=== PATIENT | female | born 1935 | race Asian ===

== ENCOUNTER 2017-06-05 13:22 | Inpatient (IN) | payer MEDICARE, OTHER ==
[~2017-06-05] VITALS: Ht 152.4 cm; Wt 49.9 kg
[~2017-06-05 13:22] MED LIST: AMLODIPINE BESY10 MG ORAL; ATORVASTATIN CA10 MG ORAL; DIOVAN160 MG ORAL; DONEPEZIL HCL10 M2 ORAL; LANTUS SOL100 UNIT/1 SUBQ; METFORMIN HCL500 M1 ORAL
[2017-06-05] MEDS ORDERED: CREON DR 24,001 EACH PO (13:28)
[2017-06-05] MEDS ORDERED: CARAFATE1 G1 ORAL ×2 (13:28→23:13)
[2017-06-05] MEDS ORDERED: GABAPENTIN100 MG ORAL ×2 (13:28→23:13)
[2017-06-05] MEDS ORDERED: MYRBETRIQ25 MG PO ×2 (13:28→23:13)
[2017-06-05] MEDS ORDERED: JENTADUETO 2.51 EAC1 PO ×2 (13:28→23:13)
[2017-06-05] MEDS ORDERED: OMEPRAZOLE40 M1 ORAL (13:28)
[2017-06-05] MEDS ORDERED: LOSARTAN POTASS50 MG ORAL (13:28)
[2017-06-05 13:50] LABS: BASOPHILS % (AUTO) 0.9 % (0.0-2.0); EOSINOPHILS % (AUTO) 0.6 % (0.0-3.0); HEMATOCRIT 43.3 % (37.0-47.0); HEMOGLOBIN 13.5 G/DL (12.0-16.0); LYMPHOCYTES % (AUTO) 22.6 % (20.0-45.0); MEAN CORPUSCULAR VOLUME 90 FL (80-99); MONOCYTES % (AUTO) 12.6 % (1.0-10.0); NEUTROPHILS % (AUTO) 63.3 % (45.0-75.0); PLATELET COUNT 159 K/UL (150-450); RED CELL DISTRIBUTION WIDTH 12.2 % (11.6-14.8); WHITE BLOOD COUNT 7.7 K/UL (4.8-10.8)
[2017-06-05 14:07] LABS: ALANINE AMINOTRANSFERASE 13 U/L (12-78); ALBUMIN 3.6 G/DL (3.4-5.0); ALKALINE PHOSPHATASE 54 U/L (46-116); ANION GAP 7 mmol/L (5-15); ASPARTATE AMINO TRANSFERASE 16 U/L (15-37); BILIRUBIN,TOTAL 0.6 MG/DL (0.2-1.0); BLOOD UREA NITROGEN 13 mg/dL (7-18); CALCIUM 9.3 MG/DL (8.5-10.1); CARBON DIOXIDE 30 MMOL/L (21-32); CHLORIDE 100 MMOL/L (98-107); POTASSIUM 3.6 MMOL/L (3.5-5.1); SODIUM 137 MMOL/L (136-145)
[2017-06-05 14:16] LABS: CKMB 1.2 NG/ML (0.0-3.6); CREATINE KINASE 44 U/L (26-308)
[2017-06-05 14:26] LABS: APPEARANCE,URINE TURBID; BILIRUBIN, URINE NEGATIVE (NEGATIVE); COLOR,URINE PALE YELLOW; GLUCOSE, URINE (UA) 1+ (NEGATIVE); KETONES,URINE NEGATIVE (NEGATIVE); LEUKOCYTE ESTERASE ,URINE 3+ (NEGATIVE); NITRITE,URINE POSITIVE (NEGATIVE); PH,URINE 7 (4.5-8.0); PROTEIN,URINE 3+ (NEGATIVE); UROBILINOGEN,URINE NORMAL MG/DL (0.0-1.0)
[2017-06-05 14:35] VITALS: BP 188/99
--- NOTE | 2017-06-05 14:52 | Emergency Room Report ---
History of Present Illness General Chief Complaint: Multiple Trauma/Fall Source: Patient, EMS (Sushma Matta) Present Illness HPI 81 YO Female Presents to the emergency department status post fall, reports feeling dizzy and her heart beating fast prior to falling. rates pain as 3/10 in severity to the right side of her face. Pt. denies taking blood thinning medications. pt. reports tenderness to the right cheekbone and right side of forehead with bleeding and swelling. pt. reports mild URI symptoms several days ago which for the most part have resolved, denies abdominal pain, N/V/D or constipation. denies fevers or chills. hx of DM, Hyperlipidemia, HTN. denies neck or back pain. denies pain elsewhere on the body. Denies CP, Changes in Vision, Sensation, paresthesias, or a sudden severe headache. (Sushma Matta) Allergies: Coded Allergies: No Known Allergies (Unverified , 07/19/13) Patient History Past Medical History: see triage record, DM, HTN Past Surgical History: none Pertinent Family History: none Now: No Reviewed Nursing Documentation: PMH: Agreed, PSxH: Agreed (Susmha Matta) Nursing Documentation-PMH Past Medical History: No History, Except For Hx Hypertension: Yes Hx Diabetes: Yes Hx Cancer: No Hx Gastrointestinal Problems: No Hx Neurological Problems: No (Sushma Matta) Review of Systems All Other Systems: negative except mentioned in HPI (Sushma Matta) Physical Exam Vital Signs Date Time Temp Pulse Resp B/P (MAP) Pulse Ox O2 Delivery O2 Flow Rate FiO2 06/05/17 13:20 99.3 99 16 180/85 96 Room Air 06/05/17 13:40 97 Sp02 EP Interpretation: reviewed, normal General Appearance: no apparent distress, alert, GCS 15, non-toxic, thin Head: normocephalic, other - facial abrasions to the right side of the forhead and the right cheek bone, there is contusion/echymosis noted as well in both areas. Eyes: bilateral eye normal inspection, bilateral eye PERRL ENT: hearing grossly normal, normal voice, TMs + canals normal, other - no oral lesions, bleeding, dentition intact Neck: full range of motion, no bony tend Respiratory: chest non-tender, lungs clear, normal breath sounds, no respiratory distress, no wheezing, speaking full sentences Cardiovascular #1: regular rate, rhythm, no edema, normal capillary refill Cardiovascular #2: 2+ radial (R), 2+ radial (L) Gastrointestinal: normal bowel sounds, non tender, soft Rectal: deferred Musculoskeletal: back normal, gait/station normal, normal range of motion, tender - TTP to the right cheekbone, and right side of the forehead. no TTP to neck, spine, or extremities. Neurologic: alert, oriented x3, responsive, motor strength/tone normal, sensory intact, speech normal, no pronator Skin: normal color, no rash, warm/dry, well hydrated, abrasions - facial abrasions to the right side of the forhead and the right cheek bone, there is contusion/echymosis noted as well in both areas. (Sushma Matta P.A.) Medical Decision Making PA Attestation Dr. Tang is my supervising Physician whom patient management has been discussed with. (Sushma Matta P.A.) Diagnostic Impression: Primary Impression: UTI (urinary tract infection) Qualified Codes: N30.01 - Acute cystitis with hematuria Additional Impressions: Fall Qualified Codes: W19.XXXA - Unspecified fall, initial encounter Multiple injuries due to trauma Syncope Qualified Codes: R55 - Syncope and collapse ER Course 81 YO Female Presents to the emergency department status post fall, reports feeling dizzy and her heart beating fast prior to falling. rates pain as 3/10 in severity to the right side of her face. Pt. denies taking blood thinning medications. pt. reports tenderness to the right cheekbone and right side of forehead with bleeding and swelling. pt. reports mild URI symptoms several days ago which for the most part have resolved, denies abdominal pain, N/V/D or constipation. denies fevers or chills. hx of DM, Hyperlipidemia, HTN. denies neck or back pain. denies pain elsewhere on the body. Denies CP, Changes in Vision, Sensation, paresthesias, or a sudden severe headache. Ddx considered but are not limited to dysrhythmia, hypoglycemia, hypovolemia, , intracranial process, vasovagal, subdural hematoma or ICH. Vital signs: are WNL, pt. is afebrile H&PE are most consistent with Fall with preceding dizziness. ORDERS: - EK BPM NSR - no acute ST changes reviewed by Dr. Tnag, his interpretation was scribed by EZEKIEL Matta -CBC, CMP: unremarkable -Troponin (0.00) , CK, CK-MB: --WNL -UA : positive for UTI, nitrite positive, many bacteria, and TNTC WBC's Ct Head No Contrast: No evidence of acute fracture, hemorrhage, or intracranial process Per official radiology report- Please see report for specific details. -CT Facial Bones No Contrast: Negative for acute fractures -CT C-Spine No Contrast: Negative for acute fractures, degenerative changes noted - Per official radiology report- Please see report for specific details. -CXR ED INTERVENTIONS: -IV access is established - Pt. declines pain medication at this time. -wound cleaning and bacitracin is applied by RN -Cefepime IV DISPOSITION: at this time pt. will be admitted to Dr. Strong for UTI, Syncopal episode. Dr. Strong agreed to admit the pt. and to continue pt. care management. Labs Test 06/05/17 13:30 White Blood Count 7.7 K/UL (4.8-10.8) Red Blood Count 4.80 M/UL (4.20-5.40) Hemoglobin 13.5 G/DL (12.0-16.0) Hematocrit 43.3 % (37.0-47.0) Mean Corpuscular Volume 90 FL (80-99) Mean Corpuscular Hemoglobin 28.1 PG (27.0-31.0) Mean Corpuscular Hemoglobin Concent 31.2 G/DL (32.0-36.0) Red Cell Distribution Width 12.2 % (11.6-14.8) Platelet Count 159 K/UL (150-450) Mean Platelet Volume 7.6 FL (6.5-10.1) Neutrophils (%) (Auto) 63.3 % (45.0-75.0) Lymphocytes (%) (Auto) 22.6 % (20.0-45.0) Monocytes (%) (Auto) 12.6 % (1.0-10.0) Eosinophils (%) (Auto) 0.6 % (0.0-3.0) Basophils (%) (Auto) 0.9 % (0.0-2.0) Urine Color Pale yellow Urine Appearance Turbid Urine pH 7 (4.5-8.0) Urine Specific [place] 1.010 (1.005-1.035) Urine Protein 3+ (NEGATIVE) Urine Glucose (UA) 1+ (NEGATIVE) Urine Ketones Negative (NEGATIVE) Urine Occult Blood 2+ (NEGATIVE) Urine Nitrite Positive (NEGATIVE) Urine Bilirubin Negative (NEGATIVE) Urine Urobilinogen Normal MG/DL (0.0-1.0) Urine Leukocyte Esterase 3+ (NEGATIVE) Urine RBC 2-4 /HPF (0 - 2) Urine WBC Tntc /HPF (0 - 2) Urine Squamous Epithelial Cells Moderate /LPF (NONE/OCC) Urine Bacteria Many /HPF (NONE) Sodium Level 137 MMOL/L (136-145) Potassium Level 3.6 MMOL/L (3.5-5.1) Chloride Level 100 MMOL/L (98-107) Carbon Dioxide Level 30 MMOL/L (21-32) Anion Gap 7 mmol/L (5-15) Blood Urea Nitrogen 13 mg/dL (7-18) Creatinine 1.0 MG/DL (0.55-1.30) Estimat Glomerular Filtration Rate mL/min (>60) Glucose Level 153 MG/DL (74-106) Calcium Level 9.3 MG/DL (8.5-10.1) Total Bilirubin 0.6 MG/DL (0.2-1.0) Aspartate Amino Transf (AST/SGOT) 16 U/L (15-37) Alanine Aminotransferase (ALT/SGPT) 13 U/L (12-78) Alkaline Phosphatase 54 U/L (46-116) Total Creatine Kinase 44 U/L (26-308) Creatine Kinase MB 1.2 NG/ML (0.0-3.6) Creatine Kinase MB Relative Index 2.7 Troponin I 0.000 ng/mL (0.000-0.056) Total Protein 7.2 G/DL (6.4-8.2) Albumin 3.6 G/DL (3.4-5.0) Globulin 3.6 g/dL Albumin/Globulin Ratio 1.0 (1.0-2.7) (Sushma Matta.Rah.) ER Course I agree with the above assessment. Patient examined by me and needs admission. (Ben Massey M.D.) EKG Diagnostic Results EP Interpretation: [place] Rate: normal - 90 Rhythm: NSR ST Segments: no acute changes ASA given to the pt in ED: No PA Scribe Text - EK BPM NSR - no acute ST changes reviewed by Dr. Tang, his interpretation was scribed by EZEKIEL Matta (Sushma Matta P.ABela) Chest X-Ray Diagnostic Results Chest X-Ray Diagnostic Results : Chest X-Ray Ordered: Yes # of Views/Limited/Complete: 1 View Indication: Other - Syncope EP Interpretation: Yes PA Xray: Interpretation reviewed, by supervising MD, and agrees with findings. Interpretation: no consolidation, no effusion, no pneumothorax, no acute cardiopulmonary disease Impression: No acute disease Electronically Signed by: Sushma Matta PA-C (Sushma Matta P.Cecil) Chest X-Ray Diagnostic Results : Electronically Signed by: Scribbuddy documentation reviewed by me and is accurate, Ben Massey MD. (Ben Massey M.D.) Last Vital Signs Date Time Temp Pulse Resp B/P (MAP) Pulse Ox O2 Delivery O2 Flow Rate FiO2 06/05/17 14:35 98.5 81 20 188/99 95 Room Air 06/05/17 13:40 97 (Sushma Matta P.Cecil) Disposition: ADMITTED INPATIENT Condition: Serious Referrals: NOT CHOSEN IPA/,REFERRING (PCP) Sushma Matta Jun 05, 2017 14:52 Ben Massey M.D. Jun 08, 2017 20:56
[2017-06-05] MEDS ORDERED: Cefepime HCl 2 GM in D5W 110 ML IVPB ONE (15:00)
--- NOTE | 2017-06-05 15:01 | Diagnostic Imaging Report ---
Indications: Right-sided facial trauma from fall on street, head pain Technique: Spiral acquisitions obtained through the brain. Angled axial and coronal 5 x 5 mm slices were reconstructed. Total dose length product 1357 mGycm. CTDI vol(s) 70 mGy. Dose reduction achieved using automated exposure control Comparison: None Findings: There is a right supraorbital scalp contusion. There is age-related enlargement of ventricles and extra-axial CSF spaces. There is considerable periventricular deep white matter chronic ischemic change. There is a parenchymal calcification in the right parasagittal parietal cortex. No acute intracranial hemorrhage or edema. No mass effect or midline shift. 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 This is best appreciated on the coronal images. Intact calvarium. 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
[2017-06-05] MEDS ORDERED: Cefepime 2gm ONE (15:05)
--- NOTE | 2017-06-05 15:24 | Diagnostic Imaging Report ---
Indication: PAIN, right-sided trauma from fall on street Technique: Spiral acquisitions obtained through the cervical spine. No IV contrast utilized. Multiplanar reconstructions were generated. Total dose length product 183 mGycm. CTDIvol(s) 10 mGy. Dose reduction achieved using automated exposure control Comparison: None Findings: There is minimal posterior displacement of C5 on C6 and C6 on C7. Otherwise normal bony alignment. No acute fractures. Vertebral body heights are preserved. There is degenerative disc narrowing at C5-6 and C6-7. The remainder of the disc spaces are preserved. At C3-4, there is mild central posterior disc protrusion which results in mild narrowing of the spinal canal. There is mild narrowing of the right neural foramen as well. At C4-5, there is posterior disc protrusion which results in mild to moderate narrowing of the spinal canal. At C5-6, broad-based central posterior disc protrusion results in moderate narrowing of the spinal canal, particularly to the right. There is moderate to severe right neural foraminal stenosis. At C6-7, posterior osteophytes and ligament of flavum hypertrophy results in mild narrowing of the spinal canal. There is mild right and moderate to severe left neural foraminal stenosis. The remaining disc levels, no significant disc bulge or protrusion, spinal stenosis or neural foraminal stenosis The included lung apices are clear. The included extraspinal soft tissues are unremarkable. Impression: Degenerative changes as detailed on a level by level basis above No acute bony trauma. The CT scanner at [facility] is accredited by the [employer] and the scans are performed using protocols designed to limit radiation exposure to as low as reasonably achievable to attain images of sufficient resolution adequate for diagnostic evaluation.
--- NOTE | 2017-06-05 15:27 | Diagnostic Imaging Report ---
Indications: Right-sided facial trauma from fall on streak Technique: Spiral images obtained through the facial bones. No IV contrast utilized. Multiplanar reconstructions were generated.Total dose length product 540 mGycm. CTDIvol(s) 28mGy. Dose reduction achieved using automated exposure control Comparison: None Findings: Is there is supraorbital scalp soft tissue swelling on the right. No evidence of acute fracture. There is minimal ethmoid sinus mucosal disease. No worrisome sinus air-fluid levels are demonstrated. There is evidence of considerable dental disease, with multiple dental caries and suggestion of multiple small apical root abscesses, particularly on the maxillary side. There is also evidence of multiple prior dental extractions. Is evidence of prior bilateral cataract surgery. The facial soft tissues are unremarkable. The submandibular glands are somewhat atrophic. Impression: No acute bony trauma Evidence of dental disease Other findings as noted The CT scanner at [facility] is accredited by the [employer] and the scans are performed using protocols designed to limit radiation exposure to as low as reasonably achievable to attain images of sufficient resolution adequate for diagnostic evaluation.
--- NOTE | 2017-06-05 15:45 | Diagnostic Imaging Report ---
Indication: Chest pain Technique: One view of the chest Comparison: 07/19/2013 Findings: Lungs and pleural spaces are clear. Heart size is upper limits of normal. Aorta is tortuous and calcified. Upper mediastinum is unremarkable. Impression: No acute process
[2017-06-05 15:55] VITALS: BP 156/86
[2017-06-05] MEDS ORDERED: Bacitracin Oint UD TOPIC ONE (16:15)
[2017-06-05 16:30] VITALS: BP 166/82
--- NOTE | 2017-06-05 17:18 | Infectious Diseases Prog Note ---
Assessment/Plan Problems: (1) UTI (urinary tract infection) Assessment & Plan: will start cefepime empirically pending urine culture results (2) Multiple injuries due to trauma Assessment & Plan: continue tele monitor, and neuro check (3) DM (diabetes mellitus) Assessment & Plan: recommend tight glycemic control to keep blood glucose between 80-120 (4) HTN (hypertension) Assessment & Plan: continue blood pressure meds to keep SBP<140 Subjective Allergies: Coded Allergies: No Known Allergies (Unverified , 07/19/13) Objective Vital Signs Last 24 Hour Vital Signs Date Time Temp Pulse Resp B/P (MAP) Pulse Ox O2 Delivery O2 Flow Rate FiO2 06/05/17 15:55 99.3 98 19 156/86 95 Room Air 97 06/05/17 14:35 98.5 81 20 188/99 95 Room Air 06/05/17 13:40 93 19 Room Air 97 06/05/17 13:20 99.3 99 16 180/85 96 Room Air Height (Feet): 5 Weight (Pounds): 110 Laboratory Tests Test 06/05/17 13:30 White Blood Count 7.7 K/UL (4.8-10.8) Red Blood Count 4.80 M/UL (4.20-5.40) Hemoglobin 13.5 G/DL (12.0-16.0) Hematocrit 43.3 % (37.0-47.0) Mean Corpuscular Volume 90 FL (80-99) Mean Corpuscular Hemoglobin 28.1 PG (27.0-31.0) Mean Corpuscular Hemoglobin Concent 31.2 G/DL (32.0-36.0) L Red Cell Distribution Width 12.2 % (11.6-14.8) Platelet Count 159 K/UL (150-450) Mean Platelet Volume 7.6 FL (6.5-10.1) Neutrophils (%) (Auto) 63.3 % (45.0-75.0) Lymphocytes (%) (Auto) 22.6 % (20.0-45.0) Monocytes (%) (Auto) 12.6 % (1.0-10.0) H Eosinophils (%) (Auto) 0.6 % (0.0-3.0) Basophils (%) (Auto) 0.9 % (0.0-2.0) Urine Color Pale yellow Urine Appearance Turbid Urine pH 7 (4.5-8.0) Urine Specific [place] 1.010 (1.005-1.035) Urine Protein 3+ (NEGATIVE) H Urine Glucose (UA) 1+ (NEGATIVE) H Urine Ketones Negative (NEGATIVE) Urine Occult Blood 2+ (NEGATIVE) H Urine Nitrite Positive (NEGATIVE) H Urine Bilirubin Negative (NEGATIVE) Urine Urobilinogen Normal MG/DL (0.0-1.0) Urine Leukocyte Esterase 3+ (NEGATIVE) H Urine RBC 2-4 /HPF (0 - 2) H Urine WBC Tntc /HPF (0 - 2) H Urine Squamous Epithelial Cells Moderate /LPF (NONE/OCC) H Urine Bacteria Many /HPF (NONE) H Sodium Level 137 MMOL/L (136-145) Potassium Level 3.6 MMOL/L (3.5-5.1) Chloride Level 100 MMOL/L (98-107) Carbon Dioxide Level 30 MMOL/L (21-32) Anion Gap 7 mmol/L (5-15) Blood Urea Nitrogen 13 mg/dL (7-18) Creatinine 1.0 MG/DL (0.55-1.30) Estimat Glomerular Filtration Rate mL/min (>60) Glucose Level 153 MG/DL (74-106) H Calcium Level 9.3 MG/DL (8.5-10.1) Total Bilirubin 0.6 MG/DL (0.2-1.0) Aspartate Amino Transf (AST/SGOT) 16 U/L (15-37) Alanine Aminotransferase (ALT/SGPT) 13 U/L (12-78) Alkaline Phosphatase 54 U/L (46-116) Total Creatine Kinase 44 U/L (26-308) Creatine Kinase MB 1.2 NG/ML (0.0-3.6) Creatine Kinase MB Relative Index 2.7 Troponin I 0.000 ng/mL (0.000-0.056) Total Protein 7.2 G/DL (6.4-8.2) Albumin 3.6 G/DL (3.4-5.0) Globulin 3.6 g/dL Albumin/Globulin Ratio 1.0 (1.0-2.7) Sherlyn Douglas M.D. Jun 05, 2017 17:18
[2017-06-05 17:30] VITALS: BP 174/98
[2017-06-05 18:05] VITALS: BP 143/82
[2017-06-05] MEDS: Cefepime HCl 1 GM in D5W 55 ML IVPB SCH (19:08)
[2017-06-05 20:00] VITALS: BP 150/89
[2017-06-05] MEDS: NovoLOG Insulin Flexpen SUBQ SCH (21:00)
--- NOTE | 2017-06-05 21:45 | Consultation ---
DATE OF CONSULTATION: INFECTIOUS DISEASE CONSULTATION REQUESTING PHYSICIAN: Juan R Ellison M.D. REASON FOR CONSULTATION: Urinary tract infection. Recommendation for antibiotics treatment. HISTORY OF PRESENT ILLNESS: The patient is an 81-year-old female with past medical history of diabetes and hypertension, was brought in to [facility] emergency room after she had a fall. The patient felt dizzy and her heart was beating fast before she fell. So she landed on the right cheekbone on the right side of her forehead with skull bruises and bleeding sustained after the fall. She had mild upper respiratory infection symptoms couple of days prior to her fall, but most of it have resolved completely. The patient denied any an abdominal pain, nausea, vomiting, or diarrhea. Denied any fever or chills. No cough or shortness of breath. No chest pain. No blurry vision. No other symptoms. In the emergency room, the patient was found to have fever with temperature of 99.3 degrees and elevated blood pressure of 180/85. Urinalysis showed evidence of infection. So, I was consulted by the primary provider for antibiotic choice and further management of her urine tract infection and fever. As of note, the patient is poor historian. Most of the history was obtained from the emergency room medical staff and the medical record. PAST MEDICAL HISTORY: Significant for diabetes and hypertension. PAST SURGICAL HISTORY: Negative. MEDICATIONS: She received cefepime and bacitracin in the emergency room. ALLERGIES: No known drug allergy. SOCIAL HISTORY: The patient denied using any drugs, tobacco, or alcohol. FAMILY HISTORY: Not contributory. REVIEW OF SYSTEMS: Unable to obtain. The patient cannot provide good history at this point. PHYSICAL EXAMINATION: GENERAL: An elderly female, lying in bed, awake, alert, not in acute distress. VITAL SIGNS: Temperature 99.3 degrees, pulse 90, respirations 19, blood pressure 156/86, and saturation 95% on room air. HEENT: Normocephalic with trauma and bruises above the right orbital area with ecchymosis. Moist oral mucosa. No exudate or thrush. NECK: Supple. No lymphadenopathy. CARDIOVASCULAR: Regular rate and rhythm. No murmur. LUNGS: Clear bilaterally. No wheezing or rhonchi. ABDOMEN: Soft, nontender, and nondistended. Positive bowel sounds. No hepatosplenomegaly or ascites. EXTREMITIES: No edema or cyanosis, but bruises. SKIN: No rash. No hives, but bruises and ecchymosis. LABORATORY AND DIAGNOSTIC DATA: Imaging, 1. Head CT scan showed chronic and age-related changes. Negative for acute intracranial bleed or mass effect. 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 Right supra orbital scalp soft tissue contusion. 2. CT scan facial bones showed no acute bony trauma with evidence of dental disease. 3. Chest x-ray showed no acute process. 4. Cervical spine CT scan showed degenerative changes. ASSESSMENT AND RECOMMENDATION: 1. Urinary tract infection. We will start the patient on cefepime empiric treatment. Pending urine culture results. Monitor vitals. 2. Multiple injury due to trauma. Continue telemonitor and neuro check. Recommend Neurology consultation to rule out brain contusion. 3. Diabetes. Recommend tight glycemic control to keep blood glucose between 80 to 120. 4. Hypertension. Continue blood pressure medicine to keep systolic blood pressure less than 140. Avoid orthostatic hypotension. Thank you for the consult. ID will continue to follow. Sherlyn Douglas M.D. DR: REMY JOB#: [id number] CC:
[2017-06-05] MEDS ORDERED: PLAVIX75 MG ORAL (23:13)
[2017-06-05] MEDS ORDERED: LEVEMIR100 UNIT/1 SUBQ (23:13)
[2017-06-06] VITALS (7 sets, daily range): BP systolic 132–155; BP diastolic 68–109
[2017-06-06] MEDS ORDERED: Bacitracin Oint UD TOPIC ONE (04:00)
[2017-06-06] MEDS: NovoLOG Insulin Flexpen SUBQ SCH ×4 (06:30→21:01)
[2017-06-06 07:56] LABS: BASOPHILS % (AUTO) 0.8 % (0.0-2.0); EOSINOPHILS % (AUTO) 0.6 % (0.0-3.0); HEMATOCRIT 40.1 % (37.0-47.0); HEMOGLOBIN 13.3 G/DL (12.0-16.0); LYMPHOCYTES % (AUTO) 19.1 % (20.0-45.0); MEAN CORPUSCULAR VOLUME 90 FL (80-99); MONOCYTES % (AUTO) 12.4 % (1.0-10.0); NEUTROPHILS % (AUTO) 67.1 % (45.0-75.0); PLATELET COUNT 152 K/UL (150-450); RED BLOOD COUNT 4.47 M/UL (4.20-5.40); RED CELL DISTRIBUTION WIDTH 11.8 % (11.6-14.8); WHITE BLOOD COUNT 5.7 K/UL (4.8-10.8)
[2017-06-06 08:13] LABS: ALANINE AMINOTRANSFERASE 15 U/L (12-78); ALBUMIN 3.2 G/DL (3.4-5.0); ALBUMIN/GLOBULIN RATIO 0.8 (1.0-2.7); ALKALINE PHOSPHATASE 43 U/L (46-116); ANION GAP 12 mmol/L (5-15); ASPARTATE AMINO TRANSFERASE 16 U/L (15-37); BILIRUBIN,TOTAL 0.7 MG/DL (0.2-1.0); BLOOD UREA NITROGEN 13 mg/dL (7-18); CALCIUM 9.2 MG/DL (8.5-10.1); CARBON DIOXIDE 24 MMOL/L (21-32); CHLORIDE 102 MMOL/L (98-107); CREATININE 0.8 MG/DL (0.55-1.30); POTASSIUM 3.3 MMOL/L (3.5-5.1); SODIUM 138 MMOL/L (136-145)
[2017-06-06] MEDS: Cefepime HCl 1 GM in D5W 55 ML IVPB SCH (09:45)
[2017-06-06] MEDS: Bacitracin Oint UD TOPIC SCH (10:23)
--- NOTE | 2017-06-06 14:41 | Cardiology Report ---
APPROVED REPORT EKG Measurement Heart [id number] ID [id number] Normal sinus rhythm Normal ECG
--- NOTE | 2017-06-06 14:41 | Cardiology Report ---
APPROVED REPORT EKG Measurement Heart [id number] [place] [id number] Normal sinus rhythm Normal ECG
--- NOTE | 2017-06-06 14:41 | Cardiology Report ---
APPROVED REPORT EKG Measurement Heart [id number] [place] [id number] Normal sinus rhythm Normal ECG
--- NOTE | 2017-06-06 16:06 | Infectious Diseases Prog Note ---
Assessment/Plan Problems: (1) UTI (urinary tract infection) Assessment & Plan: continue cefepime empirically pending urine culture results (2) Multiple injuries due to trauma Assessment & Plan: continue tele monitor, and neuro check (3) DM (diabetes mellitus) Assessment & Plan: recommend tight glycemic control to keep blood glucose between 80-120 (4) HTN (hypertension) Assessment & Plan: continue blood pressure meds to keep SBP<140 (5) Fever Assessment & Plan: suspect facial cellulitis will add vancomycin and continue cefepime empirically Subjective ROS Limited/Unobtainable: Yes Allergies: Coded Allergies: No Known Allergies (Unverified , 07/19/13) Subjective she has right facial swelling , with bruises, can't open her right eye, NAD Objective Vital Signs Last 24 Hour Vital Signs Date Time Temp Pulse Resp B/P (MAP) Pulse Ox O2 Delivery O2 Flow Rate FiO2 06/06/17 15:37 98.1 89 18 132/68 94 Room Air 06/06/17 12:00 98 06/06/17 11:43 100.0 92 20 140/78 93 Room Air 06/06/17 09:51 95 144/91 06/06/17 08:32 97.0 95 18 144/91 94 Room Air 06/06/17 08:00 96 06/06/17 04:00 82 06/06/17 04:00 98.0 100 21 144/91 93 Room Air 06/06/17 00:00 97.9 93 20 155/83 92 Room Air 06/06/17 00:00 82 06/05/17 20:00 98.1 94 21 150/89 93 Room Air 06/05/17 20:00 89 06/05/17 18:05 97.2 83 19 143/82 95 Room Air 06/05/17 17:30 99.5 97 20 174/98 99 Room Air 06/05/17 17:30 99.3 97 20 174/98 99 Room Air 97 06/05/17 16:30 87 22 166/82 95 Room Air 97 Height (Feet): 5 Height (Inches): 0.00 Weight (Pounds): 110 General Appearance: no acute distress, cachetic, other - right facial swelling with bruises, and periorbital edema HEENT: anicteric, mucous membranes moist, other - right facial swelling, with periorbital edema and blue discoloration Respiratory/Chest: chest wall non-tender, lungs clear, normal breath sounds, no respiratory distress, no accessory muscle use Cardiovascular: normal peripheral pulses, normal rate, regular rhythm, no gallop/murmur, no JVD Abdomen: normal bowel sounds, soft, non tender, no organomegaly, non distended , no mass, no scars Extremities: no cyanosis, no clubbing Skin: no rash, no lesions, no ulcers Neurologic/Psychiatric: alert Lymphatic: no neck adenopathy, no groin adenopathy Microbiology Date/Time Source Procedure Growth Status 06/05/17 13:30 Urine,Clean Catch Urine Culture - Preliminary Resulted Laboratory Tests Test 06/06/17 05:55 White Blood Count 5.7 K/UL (4.8-10.8) Red Blood Count 4.47 M/UL (4.20-5.40) Hemoglobin 13.3 G/DL (12.0-16.0) Hematocrit 40.1 % (37.0-47.0) Mean Corpuscular Volume 90 FL (80-99) Mean Corpuscular Hemoglobin 29.6 PG (27.0-31.0) Mean Corpuscular Hemoglobin Concent 33.0 G/DL (32.0-36.0) Red Cell Distribution Width 11.8 % (11.6-14.8) Platelet Count 152 K/UL (150-450) Mean Platelet Volume 8.7 FL (6.5-10.1) Neutrophils (%) (Auto) 67.1 % (45.0-75.0) Lymphocytes (%) (Auto) 19.1 % (20.0-45.0) L Monocytes (%) (Auto) 12.4 % (1.0-10.0) H Eosinophils (%) (Auto) 0.6 % (0.0-3.0) Basophils (%) (Auto) 0.8 % (0.0-2.0) Sodium Level 138 MMOL/L (136-145) Potassium Level 3.3 MMOL/L (3.5-5.1) L Chloride Level 102 MMOL/L (98-107) Carbon Dioxide Level 24 MMOL/L (21-32) Anion Gap 12 mmol/L (5-15) Blood Urea Nitrogen 13 mg/dL (7-18) Creatinine 0.8 MG/DL (0.55-1.30) Estimat Glomerular Filtration Rate mL/min (>60) Glucose Level 110 MG/DL (74-106) H Calcium Level 9.2 MG/DL (8.5-10.1) Total Bilirubin 0.7 MG/DL (0.2-1.0) Aspartate Amino Transf (AST/SGOT) 16 U/L (15-37) Alanine Aminotransferase (ALT/SGPT) 15 U/L (12-78) Alkaline Phosphatase 43 U/L (46-116) L Total Protein 7.3 G/DL (6.4-8.2) Albumin 3.2 G/DL (3.4-5.0) L Globulin 4.1 g/dL Albumin/Globulin Ratio 0.8 (1.0-2.7) L Current Medications Medications (Trade) Dose Ordered Sig/Fercho Route PRN Reason Start Time Stop Time Status Last Admin Dose Admin Acetaminophen (Tylenol) 650 mg Q4H PRN ORAL fever (temp > 100.5 F) 06/05/17 18:00 07/05/17 17:59 Amlodipine Besylate (Norvasc) 5 mg DAILY ORAL 06/06/17 09:00 07/06/17 08:59 06/06/17 09:51 Bacitracin (Bacitracin) 1 applic DAILY TOPIC 06/06/17 09:00 07/06/17 08:59 06/06/17 10:23 Cefepime HCl 1 gm/ Dextrose 55 ml @ 110 mls/hr DAILY IVPB 06/05/17 18:30 06/12/17 18:29 06/06/17 09:45 Clonidine HCl (Catapres) 0.1 mg Q6H PRN ORAL For High Blood Pressure 06/05/17 18:00 07/05/17 17:59 Dextrose (Dextrose 50%) STAT PRN IV Hypoglycemia 06/05/17 18:00 07/05/17 17:59 Insulin Aspart (NovoLOG) BEFORE MEALS AND HS SUBQ 06/05/17 21:00 07/05/17 20:59 06/06/17 13:00 Sherlyn Douglas M.D. Jun 06, 2017 16:06
[2017-06-06] MEDS: Vancomycin 500 MG in NS 110 ML IVPB SCH (17:37)
[2017-06-06] MEDS ORDERED: NS 275ml ONE (18:00)
[2017-06-06] MEDS ORDERED: Tubing IV Secondary IV ONE (18:00)
[2017-06-07 03:58] VITALS: BP 155/81
[2017-06-07] MEDS: NovoLOG Insulin Flexpen SUBQ SCH ×4 (06:18→21:26)
[2017-06-07 08:00] VITALS: BP 161/82
[2017-06-07] MEDS: Cefepime HCl 1 GM in D5W 55 ML IVPB SCH (09:09)
[2017-06-07] MEDS: Bacitracin Oint UD TOPIC SCH (09:10)
[2017-06-07] MEDS ORDERED: Tubing IV Secondary IV ONE (09:19)
[2017-06-07] MEDS ORDERED: NS 275ml ONE (09:19)
[2017-06-07 12:00] VITALS: BP 128/80
--- NOTE | 2017-06-07 12:05 | Neurology Progress Note ---
Interim History Interim History ROS Limited/Unobtainable: Yes Objective Physical Exam Last Vital Signs Date Time Temp Pulse Resp B/P (MAP) Pulse Ox O2 Delivery O2 Flow Rate FiO2 06/07/17 09:10 83 161/82 06/07/17 08:00 95.0 19 Room Air 06/07/17 03:58 92 06/05/17 17:30 97 Impression/Recommendations Recommendations # [id number] MONA GONZALES Jun 07, 2017 12:05
--- NOTE | 2017-06-07 12:05 | Neurology Progress Note ---
Interim History Interim History ROS Limited/Unobtainable: Yes Objective Physical Exam Last Vital Signs Date Time Temp Pulse Resp B/P (MAP) Pulse Ox O2 Delivery O2 Flow Rate FiO2 06/07/17 09:10 83 161/82 06/07/17 08:00 95.0 19 Room Air 06/07/17 03:58 92 06/05/17 17:30 97 Impression/Recommendations Recommendations # [id number] MONA GONZALES Jun 07, 2017 12:05
--- NOTE | 2017-06-07 12:05 | Neurology Progress Note ---
Interim History Interim History ROS Limited/Unobtainable: Yes Objective Physical Exam Last Vital Signs Date Time Temp Pulse Resp B/P (MAP) Pulse Ox O2 Delivery O2 Flow Rate FiO2 06/07/17 09:10 83 161/82 06/07/17 08:00 95.0 19 Room Air 06/07/17 03:58 92 06/05/17 17:30 97 Impression/Recommendations Recommendations # [id number] MONA GONZALES Jun 07, 2017 12:05
[2017-06-07 14:21] LABS: BASOPHILS % (AUTO) 0.8 % (0.0-2.0); EOSINOPHILS % (AUTO) 2.3 % (0.0-3.0); HEMATOCRIT 39.3 % (37.0-47.0); HEMOGLOBIN 12.8 G/DL (12.0-16.0); MEAN CORPUSCULAR VOLUME 90 FL (80-99); MONOCYTES % (AUTO) 11.2 % (1.0-10.0); NEUTROPHILS % (AUTO) 68.8 % (45.0-75.0); PLATELET COUNT 148 K/UL (150-450); RED BLOOD COUNT 4.35 M/UL (4.20-5.40); RED CELL DISTRIBUTION WIDTH 11.7 % (11.6-14.8); WHITE BLOOD COUNT 4.9 K/UL (4.8-10.8)
[2017-06-07 14:43] LABS: ALANINE AMINOTRANSFERASE 12 U/L (12-78); ALBUMIN 2.9 G/DL (3.4-5.0); ALBUMIN/GLOBULIN RATIO 0.7 (1.0-2.7); ALKALINE PHOSPHATASE 48 U/L (46-116); ANION GAP 7 mmol/L (5-15); ASPARTATE AMINO TRANSFERASE 18 U/L (15-37); BILIRUBIN,TOTAL 0.4 MG/DL (0.2-1.0); BLOOD UREA NITROGEN 13 mg/dL (7-18); CALCIUM 8.9 MG/DL (8.5-10.1); CARBON DIOXIDE 27 MMOL/L (21-32); CHLORIDE 100 MMOL/L (98-107); CREATININE 0.9 MG/DL (0.55-1.30); POTASSIUM 4.1 MMOL/L (3.5-5.1); SODIUM 134 MMOL/L (136-145)
[2017-06-07 16:18] VITALS: BP 146/77
[2017-06-07] MEDS: Vancomycin 500 MG in NS 110 ML IVPB SCH (16:58)
[2017-06-07 20:00] VITALS: BP 137/86
--- NOTE | 2017-06-07 20:14 | General Progress Note ---
Assessment/Plan Problem List: (1) Syncope ICD Codes: R55 - Syncope and collapse SNOMED: 610666887 Qualifiers: Qualified Codes: R55 - Syncope and collapse (2) UTI (urinary tract infection) ICD Codes: N39.0 - Urinary tract infection, site not specified SNOMED: 96840102 Qualifiers: Qualified Codes: N30.01 - Acute cystitis with hematuria (3) Fall ICD Codes: W19.XXXA - Unspecified fall, initial encounter SNOMED: 5498453, 930354738 Qualifiers: Qualified Codes: W19.XXXA - Unspecified fall, initial encounter (4) Multiple injuries due to trauma ICD Codes: T07.XXXA - Unspecified multiple injuries, initial encounter SNOMED: 420235894 Status: progressing Assessment/Plan s/p fall r/o arrythmia uti is improving Subjective ROS Limited/Unobtainable: Yes Allergies: Coded Allergies: No Known Allergies (Unverified , 07/19/13) Objective Last 24 Hour Vital Signs Date Time Temp Pulse Resp B/P (MAP) Pulse Ox O2 Delivery O2 Flow Rate FiO2 06/07/17 16:18 98.4 81 19 146/77 Room Air 06/07/17 16:00 82 06/07/17 12:00 78 06/07/17 12:00 97.5 80 19 128/80 Room Air 06/07/17 09:10 83 161/82 06/07/17 08:00 93 06/07/17 08:00 95.0 83 19 161/82 Room Air 06/07/17 04:00 76 06/07/17 03:58 96.6 75 20 155/81 92 Room Air 06/07/17 00:00 62 06/06/17 23:44 96.1 75 20 133/78 95 Room Air Intake and Output 06/07/17 06/08/17 19:00 07:00 Intake Total 240 ml Balance 240 ml Intake Oral 240 ml # Voids 2 Laboratory Tests 06/07/17 14:05: White Blood Count 4.9, Red Blood Count 4.35, Hemoglobin 12.8, Hematocrit 39.3, Mean Corpuscular Volume 90, Mean Corpuscular Hemoglobin 29.4, Mean Corpuscular Hemoglobin Concent 32.5, Red Cell Distribution Width 11.7, Platelet Count 148L, Mean Platelet Volume 8.9, Neutrophils (%) (Auto) 68.8, Lymphocytes (%) (Auto) 17.0L, Monocytes (%) (Auto) 11.2H, Eosinophils (%) (Auto) 2.3, Basophils (%) ( Auto) 0.8, Sodium Level 134L, Potassium Level 4.1, Chloride Level 100, Carbon Dioxide Level 27, Anion Gap 7, Blood Urea Nitrogen 13, Creatinine 0.9, Estimat Glomerular Filtration Rate , Glucose Level 240#H, Calcium Level 8.9, Total Bilirubin 0.4, Aspartate Amino Transf (AST/SGOT) 18, Alanine Aminotransferase ( ALT/SGPT) 12, Alkaline Phosphatase 48, Total Protein 7.1, Albumin 2.9L, Globulin 4.2, Albumin/Globulin Ratio 0.7L Height (Feet): 5 Height (Inches): 0.00 Weight (Pounds): 110 Neck: supple Cardiovascular: normal rate Respiratory/Chest: lungs clear Juan R Ellison MD Jun 07, 2017 20:14
--- NOTE | 2017-06-07 20:14 | General Progress Note ---
Assessment/Plan Problem List: (1) Syncope ICD Codes: R55 - Syncope and collapse SNOMED: 793099679 Qualifiers: Qualified Codes: R55 - Syncope and collapse (2) UTI (urinary tract infection) ICD Codes: N39.0 - Urinary tract infection, site not specified SNOMED: 67796010 Qualifiers: Qualified Codes: N30.01 - Acute cystitis with hematuria (3) Fall ICD Codes: W19.XXXA - Unspecified fall, initial encounter SNOMED: 0432269, 081821497 Qualifiers: Qualified Codes: W19.XXXA - Unspecified fall, initial encounter (4) Multiple injuries due to trauma ICD Codes: T07.XXXA - Unspecified multiple injuries, initial encounter SNOMED: 234294003 Status: progressing Assessment/Plan s/p fall r/o arrythmia uti is improving Subjective ROS Limited/Unobtainable: Yes Allergies: Coded Allergies: No Known Allergies (Unverified , 07/19/13) Objective Last 24 Hour Vital Signs Date Time Temp Pulse Resp B/P (MAP) Pulse Ox O2 Delivery O2 Flow Rate FiO2 06/07/17 16:18 98.4 81 19 146/77 Room Air 06/07/17 16:00 82 06/07/17 12:00 78 06/07/17 12:00 97.5 80 19 128/80 Room Air 06/07/17 09:10 83 161/82 06/07/17 08:00 93 06/07/17 08:00 95.0 83 19 161/82 Room Air 06/07/17 04:00 76 06/07/17 03:58 96.6 75 20 155/81 92 Room Air 06/07/17 00:00 62 06/06/17 23:44 96.1 75 20 133/78 95 Room Air Intake and Output 06/07/17 06/08/17 19:00 07:00 Intake Total 240 ml Balance 240 ml Intake Oral 240 ml # Voids 2 Laboratory Tests 06/07/17 14:05: White Blood Count 4.9, Red Blood Count 4.35, Hemoglobin 12.8, Hematocrit 39.3, Mean Corpuscular Volume 90, Mean Corpuscular Hemoglobin 29.4, Mean Corpuscular Hemoglobin Concent 32.5, Red Cell Distribution Width 11.7, Platelet Count 148L, Mean Platelet Volume 8.9, Neutrophils (%) (Auto) 68.8, Lymphocytes (%) (Auto) 17.0L, Monocytes (%) (Auto) 11.2H, Eosinophils (%) (Auto) 2.3, Basophils (%) ( Auto) 0.8, Sodium Level 134L, Potassium Level 4.1, Chloride Level 100, Carbon Dioxide Level 27, Anion Gap 7, Blood Urea Nitrogen 13, Creatinine 0.9, Estimat Glomerular Filtration Rate , Glucose Level 240#H, Calcium Level 8.9, Total Bilirubin 0.4, Aspartate Amino Transf (AST/SGOT) 18, Alanine Aminotransferase ( ALT/SGPT) 12, Alkaline Phosphatase 48, Total Protein 7.1, Albumin 2.9L, Globulin 4.2, Albumin/Globulin Ratio 0.7L Height (Feet): 5 Height (Inches): 0.00 Weight (Pounds): 110 Neck: supple Cardiovascular: normal rate Respiratory/Chest: lungs clear Juan R Ellison MD Jun 07, 2017 20:14
--- NOTE | 2017-06-07 20:14 | General Progress Note ---
Assessment/Plan Problem List: (1) Syncope ICD Codes: R55 - Syncope and collapse SNOMED: 832885051 Qualifiers: Qualified Codes: R55 - Syncope and collapse (2) UTI (urinary tract infection) ICD Codes: N39.0 - Urinary tract infection, site not specified SNOMED: 37880244 Qualifiers: Qualified Codes: N30.01 - Acute cystitis with hematuria (3) Fall ICD Codes: W19.XXXA - Unspecified fall, initial encounter SNOMED: 3846764, 903222396 Qualifiers: Qualified Codes: W19.XXXA - Unspecified fall, initial encounter (4) Multiple injuries due to trauma ICD Codes: T07.XXXA - Unspecified multiple injuries, initial encounter SNOMED: 290570350 Status: progressing Assessment/Plan s/p fall r/o arrythmia uti is improving Subjective ROS Limited/Unobtainable: Yes Allergies: Coded Allergies: No Known Allergies (Unverified , 07/19/13) Objective Last 24 Hour Vital Signs Date Time Temp Pulse Resp B/P (MAP) Pulse Ox O2 Delivery O2 Flow Rate FiO2 06/07/17 16:18 98.4 81 19 146/77 Room Air 06/07/17 16:00 82 06/07/17 12:00 78 06/07/17 12:00 97.5 80 19 128/80 Room Air 06/07/17 09:10 83 161/82 06/07/17 08:00 93 06/07/17 08:00 95.0 83 19 161/82 Room Air 06/07/17 04:00 76 06/07/17 03:58 96.6 75 20 155/81 92 Room Air 06/07/17 00:00 62 06/06/17 23:44 96.1 75 20 133/78 95 Room Air Intake and Output 06/07/17 06/08/17 19:00 07:00 Intake Total 240 ml Balance 240 ml Intake Oral 240 ml # Voids 2 Laboratory Tests 06/07/17 14:05: White Blood Count 4.9, Red Blood Count 4.35, Hemoglobin 12.8, Hematocrit 39.3, Mean Corpuscular Volume 90, Mean Corpuscular Hemoglobin 29.4, Mean Corpuscular Hemoglobin Concent 32.5, Red Cell Distribution Width 11.7, Platelet Count 148L, Mean Platelet Volume 8.9, Neutrophils (%) (Auto) 68.8, Lymphocytes (%) (Auto) 17.0L, Monocytes (%) (Auto) 11.2H, Eosinophils (%) (Auto) 2.3, Basophils (%) ( Auto) 0.8, Sodium Level 134L, Potassium Level 4.1, Chloride Level 100, Carbon Dioxide Level 27, Anion Gap 7, Blood Urea Nitrogen 13, Creatinine 0.9, Estimat Glomerular Filtration Rate , Glucose Level 240#H, Calcium Level 8.9, Total Bilirubin 0.4, Aspartate Amino Transf (AST/SGOT) 18, Alanine Aminotransferase ( ALT/SGPT) 12, Alkaline Phosphatase 48, Total Protein 7.1, Albumin 2.9L, Globulin 4.2, Albumin/Globulin Ratio 0.7L Height (Feet): 5 Height (Inches): 0.00 Weight (Pounds): 110 Neck: supple Cardiovascular: normal rate Respiratory/Chest: lungs clear Juan R Ellison MD Jun 07, 2017 20:14
--- NOTE | 2017-06-07 20:45 | Consultation ---
DATE OF CONSULTATION: 06/07/2017 NEUROLOGICAL CONSULTATION CONSULTING PHYSICIAN: Sky Acosta M.D. REQUESTING PHYSICIAN: Juan R Ellison M.D. HISTORY OF PRESENT ILLNESS: This is an 81-year-old female, seen in neurological consultation to evaluate new onset of head trauma. According to the patient as well as from medical records known that the patient who has episodes of intermittent dizziness, developed acute dizziness, palpitations, lost balance, and fell down hitting her head and face. There was no reported loss of consciousness noted. She was admitted to emergency room where she reported that last few days having upper respiratory infection. There was no evidence of seizure activity. Her initial laboratory work included blood pressure 180/86, temperature 99.3. CBC study were unremarkable. Chemistry panel was normal except blood sugar 153. Her urinalysis with WBCs too numerous to count, 3+ leukocyte esterase. Imaging studies included CAT scan of the brain revealing no acute intracranial abnormalities. 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 Facial bone scan and CT scan, no fracture, no dislocation, and CT of the cervical spine, no fracture, no dislocation. There is a minimal posterior displacement C5-C6 and C6-C7. Since admission till present, there was no paroxysmal event. The patient was started on IV fluids and antibiotics. Her vital signs remained stable, temperature down to 95.0 and blood pressure 161/82. PAST MEDICAL HISTORY: The patient has a history of hypertension, diabetes, and intermittent dizziness. MEDICATIONS: Treatment list prior to admission included amlodipine, atorvastatin, Plavix, donepezil, gabapentin, insulin, losartan, Myrbetriq, and Carafate. ALLERGIES: None reported. SOCIAL HISTORY: She has no evidence of alcohol or drug abuse. She is single, lives with her family. The patient is single, but has a supportive family. REVIEW OF SYMPTOMS: Intermittent dizziness, discomfort in the injury site, knee pain from previous knee replacement. Difficulty walking, using cane. PHYSICAL EXAMINATION: GENERAL: A well-developed, well-nourished, elderly female, lying comfortably in bed with family members at the bedside. VITAL SIGNS: Her vital signs now are stable. She is afebrile. HEENT: Head, normocephalic, but evidence of trauma. There is significant periorbital ecchymosis, but no otorrhea, no rhinorrhea noted. NECK: Supple. No meningeal signs. MUSCULOSKELETAL: Unremarkable. There is postoperative scarring to both knees. Peripheral pulses 1+ symmetric. MENTAL STATUS: She is alert and oriented x2. Able to give her name and age, but not place and time. Poor historian. She is able to follow simple commands. CRANIAL NERVE II: Pupils both responding to light and accommodation. Extraocular movements intact. No nystagmus. CRANIAL NERVE V: Normal corneal responses. CRANIAL NERVE VII: Slight facial asymmetry due to swelling. CRANIAL NERVE IX THROUGH XII: Tongue is in the midline. MOTOR EXAMINATION: Able to lift arms and legs against gravity. Deep tendon reflexes 1+ symmetric with downgoing toes on both sides. SENSORY EXAMINATION: Normal to pinprick and light touch. Gait not tested. IMPRESSION: 1. Status post mechanical fall with blunt head trauma. 2. Transient dizziness, rule out orthostatic hypotension. 3. Urinary tract infection. 4. Hypertension. 5. Hyperlipidemia. 6. Diabetes, type 2. 7. 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 RECOMMENDATIONS: PT and OT, started on mobility protocol. Continue with IV fluids and antibiotics to cover underlying infection. Continue with statin, hold aspirin following few days. The patient to be observed for any paroxysmal event. Thank you for allowing me to see this interesting patient in neurological consultation. Sky Acosta M.D. DR: LEAH JOB#: [id number] CC:
--- NOTE | 2017-06-07 21:15 | Infectious Diseases Prog Note ---
Assessment/Plan Problems: (1) UTI (urinary tract infection) Assessment & Plan: with gram negative rods , continue cefepime empirically pending urine culture results (2) Multiple injuries due to trauma Assessment & Plan: continue tele monitor, and neuro check, neurology is following (3) DM (diabetes mellitus) Assessment & Plan: recommend tight glycemic control to keep blood glucose between 80-120 (4) HTN (hypertension) Assessment & Plan: continue blood pressure meds to keep SBP<140 (5) Fever Assessment & Plan: suspect facial cellulitis, continue vancomycin and cefepime empirically Subjective Constitutional: Reports: fatigue HEENT: Reports: congestion, other - facial swelling Respiratory: Reports: no symptoms Breasts: Reports: no symptoms Cardiovascular: Reports: no symptoms Gastrointestinal/Abdominal: Reports: no symptoms Genitourinary: Reports: no symptoms Neurologic: Reports: headache, weakness Psychiatric: Reports: anxiety Skin: Reports: other - bruises and ecchymosis Endocrine: Reports: no symptoms Hematologic: Reports: no symptoms Musculoskeletal: Reports: no symptoms Allergies: Coded Allergies: No Known Allergies (Unverified , 07/19/13) Subjective she has right facial swelling , with bruises, can't open her right eye, NAD Objective Vital Signs Last 24 Hour Vital Signs Date Time Temp Pulse Resp B/P (MAP) Pulse Ox O2 Delivery O2 Flow Rate FiO2 06/07/17 16:18 98.4 81 19 146/77 Room Air 06/07/17 16:00 82 06/07/17 12:00 78 06/07/17 12:00 97.5 80 19 128/80 Room Air 06/07/17 09:10 83 161/82 06/07/17 08:00 93 06/07/17 08:00 95.0 83 19 161/82 Room Air 06/07/17 04:00 76 06/07/17 03:58 96.6 75 20 155/81 92 Room Air 06/07/17 00:00 62 06/06/17 23:44 96.1 75 20 133/78 95 Room Air Height (Feet): 5 Height (Inches): 0.00 Weight (Pounds): 110 General Appearance: no acute distress, cachetic, other - right facial bruises and swelling HEENT: normocephalic, anicteric, EOMI, pharynx normal, supple Respiratory/Chest: chest wall non-tender, lungs clear, normal breath sounds, no respiratory distress, no accessory muscle use Cardiovascular: normal peripheral pulses, normal rate, regular rhythm, no gallop/murmur, no JVD Abdomen: normal bowel sounds, soft, non tender, no organomegaly, non distended , no mass, no scars Genitourinary: normal external genitalia Extremities: no cyanosis, no clubbing Skin: no rash, no lesions, no ulcers, other - bruises and ecchymosis on the face Neurologic/Psychiatric: no motor/sensory deficits, alert, responsive Lymphatic: no neck adenopathy, no groin adenopathy Microbiology Date/Time Source Procedure Growth Status 06/05/17 13:30 Urine,Clean Catch Urine Culture - Preliminary Gram Negative Bacillus 1 Resulted Laboratory Tests Test 06/07/17 14:05 White Blood Count 4.9 K/UL (4.8-10.8) Red Blood Count 4.35 M/UL (4.20-5.40) Hemoglobin 12.8 G/DL (12.0-16.0) Hematocrit 39.3 % (37.0-47.0) Mean Corpuscular Volume 90 FL (80-99) Mean Corpuscular Hemoglobin 29.4 PG (27.0-31.0) Mean Corpuscular Hemoglobin Concent 32.5 G/DL (32.0-36.0) Red Cell Distribution Width 11.7 % (11.6-14.8) Platelet Count 148 K/UL (150-450) L Mean Platelet Volume 8.9 FL (6.5-10.1) Neutrophils (%) (Auto) 68.8 % (45.0-75.0) Lymphocytes (%) (Auto) 17.0 % (20.0-45.0) L Monocytes (%) (Auto) 11.2 % (1.0-10.0) H Eosinophils (%) (Auto) 2.3 % (0.0-3.0) Basophils (%) (Auto) 0.8 % (0.0-2.0) Sodium Level 134 MMOL/L (136-145) L Potassium Level 4.1 MMOL/L (3.5-5.1) Chloride Level 100 MMOL/L (98-107) Carbon Dioxide Level 27 MMOL/L (21-32) Anion Gap 7 mmol/L (5-15) Blood Urea Nitrogen 13 mg/dL (7-18) Creatinine 0.9 MG/DL (0.55-1.30) Estimat Glomerular Filtration Rate mL/min (>60) Glucose Level 240 MG/DL (74-106) #H Calcium Level 8.9 MG/DL (8.5-10.1) Total Bilirubin 0.4 MG/DL (0.2-1.0) Aspartate Amino Transf (AST/SGOT) 18 U/L (15-37) Alanine Aminotransferase (ALT/SGPT) 12 U/L (12-78) Alkaline Phosphatase 48 U/L (46-116) Total Protein 7.1 G/DL (6.4-8.2) Albumin 2.9 G/DL (3.4-5.0) L Globulin 4.2 g/dL Albumin/Globulin Ratio 0.7 (1.0-2.7) L Current Medications Medications (Trade) Dose Ordered Sig/Fercho Route PRN Reason Start Time Stop Time Status Last Admin Dose Admin Acetaminophen (Tylenol) 650 mg Q4H PRN ORAL fever (temp > 100.5 F) 06/05/17 18:00 07/05/17 17:59 06/06/17 18:52 Amlodipine Besylate (Norvasc) 5 mg DAILY ORAL 06/06/17 09:00 07/06/17 08:59 06/07/17 09:10 Bacitracin (Bacitracin) 1 applic DAILY TOPIC 06/06/17 09:00 07/06/17 08:59 06/07/17 09:10 Cefepime HCl 1 gm/ Dextrose 55 ml @ 110 mls/hr DAILY IVPB 06/05/17 18:30 06/12/17 18:29 06/07/17 09:09 Clonidine HCl (Catapres) 0.1 mg Q6H PRN ORAL For High Blood Pressure 06/05/17 18:00 07/05/17 17:59 Dextrose (Dextrose 50%) STAT PRN IV Hypoglycemia 06/05/17 18:00 07/05/17 17:59 Insulin Aspart (NovoLOG) BEFORE MEALS AND HS SUBQ 06/05/17 21:00 07/05/17 20:59 06/07/17 17:03 Vancomycin HCl (Vanco rx to dose) 1 ea DAILYPRN PRN MISC Per rx protocol 06/06/17 16:15 07/06/17 16:14 Vancomycin HCl 500 mg/Sodium Chloride 110 ml @ 110 mls/hr Q24H IVPB 06/06/17 17:00 06/13/17 16:59 06/07/17 16:58 Sherlyn Douglas M.D. Jun 07, 2017 21:15
[2017-06-08] VITALS: BP 143/74
[2017-06-08 04:00] VITALS: BP 125/65
[2017-06-08] MEDS: NovoLOG Insulin Flexpen SUBQ SCH ×4 (06:44→21:49)
[2017-06-08 08:26] VITALS: BP 160/91
--- NOTE | 2017-06-08 08:46 | History and Physical Report ---
DATE OF ADMISSION: 06/05/2017 REASON FOR ADMISSION: syncope. HISTORY OF PRESENT ILLNESS: The patient is a poor historian, cannot get any reliable history from the patient. The patient came in status post fall and admitted for UTI possible with syncope, soft tissue hematoma showed on the CT and the patient again denied any pain. Denies headache. Denies diplopia. Denies nausea, vomiting, or diarrhea , however, is a poor historian. PAST MEDICAL HISTORY: Hypertension, organic brain syndrome, NIDDM, multiple injuries in the past, advanced dementia, neuropathy, hypertension, history of pancreatitis, GERD, and hyperlipidemia. PAST SURGICAL HISTORY: Denies. ALLERGIES: No known allergies. MEDICATIONS: Benazepril, Plavix, Lipitor, insulin, losartan, Carafate. SOCIAL HISTORY: Unable to obtain. FAMILY HISTORY: Noncontributory. REVIEW OF SYSTEMS: Unable to obtain. PHYSICAL EXAMINATION: VITAL SIGNS: Temperature 100, pulse 92, and blood pressure 140/78. HEENT: PERRLA. NECK: Supple. No lymphadenopathy. Does have soft tissue scalp hematoma. CHEST: Clear to auscultation. CARDIOVASCULAR: Regular rate and rhythm. GASTROINTESTINAL: Soft, nontender, and nondistended. No organomegaly. EXTREMITIES: No edema. NEUROLOGIC: Not oriented. Poor historian. LABORATORY DATA: WBC 7.7, hemoglobin of 13.5, platelet 169,000. Basically, sodium 137, potassium 3.6, BUN 13, creatinine 1, glucose of 153. CT showed soft tissue hematoma. ASSESSMENT AND PLAN: 1. Possible syncope. 2. Fall. 3. Hypokalemia. 4. Monitor for intracranial hemorrhage. I have asked Dr. Tolliver, Dr. Acosta, and Dr. Douglas to see the patient for the fever and the above-mentioned diagnoses and treatment, rule out sepsis, and also for treatment of possible urinary tract infection. Juan R Ellison M.D. DR: Frankie JOB#: [id number] CC:
[2017-06-08] MEDS: Bacitracin Oint UD TOPIC SCH (09:24)
[2017-06-08] MEDS: Cefepime HCl 1 GM in D5W 55 ML IVPB SCH (09:24)
--- NOTE | 2017-06-08 11:10 | General Progress Note ---
Assessment/Plan Problem List: (1) Syncope ICD Codes: R55 - Syncope and collapse SNOMED: 382324221 Qualifiers: Qualified Codes: R55 - Syncope and collapse (2) UTI (urinary tract infection) ICD Codes: N39.0 - Urinary tract infection, site not specified SNOMED: 11398188 Qualifiers: Qualified Codes: N30.01 - Acute cystitis with hematuria (3) Fall ICD Codes: W19.XXXA - Unspecified fall, initial encounter SNOMED: 4574315, 418980605 Qualifiers: Qualified Codes: W19.XXXA - Unspecified fall, initial encounter (4) Multiple injuries due to trauma ICD Codes: T07.XXXA - Unspecified multiple injuries, initial encounter SNOMED: 493152653 Status: progressing Assessment/Plan s/p fall r/o arrythmia s/p mutiple ecchymoses told daughter that is not safe to go home and needs snf she agreed to snf dc planning Subjective ROS Limited/Unobtainable: Yes Constitutional: Reports: no symptoms Allergies: Coded Allergies: No Known Allergies (Unverified , 07/19/13) Objective Last 24 Hour Vital Signs Date Time Temp Pulse Resp B/P (MAP) Pulse Ox O2 Delivery O2 Flow Rate FiO2 06/08/17 09:24 94 160/91 06/08/17 08:26 96.5 94 18 160/91 96 Room Air 06/08/17 04:00 78 06/08/17 04:00 99.7 81 18 125/65 95 Room Air 06/08/17 00:00 97.4 77 18 143/74 94 Room Air 06/08/17 00:00 76 06/07/17 20:00 98.8 80 20 137/86 94 Room Air 06/07/17 20:00 86 06/07/17 16:18 98.4 81 19 146/77 Room Air 06/07/17 16:00 82 06/07/17 12:00 78 06/07/17 12:00 97.5 80 19 128/80 Room Air Intake and Output 06/08/17 06/09/17 19:00 07:00 Intake Total 220 ml Balance 220 ml Intake Oral 220 ml Laboratory Tests 06/07/17 14:05: White Blood Count 4.9, Red Blood Count 4.35, Hemoglobin 12.8, Hematocrit 39.3, Mean Corpuscular Volume 90, Mean Corpuscular Hemoglobin 29.4, Mean Corpuscular Hemoglobin Concent 32.5, Red Cell Distribution Width 11.7, Platelet Count 148L, Mean Platelet Volume 8.9, Neutrophils (%) (Auto) 68.8, Lymphocytes (%) (Auto) 17.0L, Monocytes (%) (Auto) 11.2H, Eosinophils (%) (Auto) 2.3, Basophils (%) ( Auto) 0.8, Sodium Level 134L, Potassium Level 4.1, Chloride Level 100, Carbon Dioxide Level 27, Anion Gap 7, Blood Urea Nitrogen 13, Creatinine 0.9, Estimat Glomerular Filtration Rate , Glucose Level 240#H, Calcium Level 8.9, Total Bilirubin 0.4, Aspartate Amino Transf (AST/SGOT) 18, Alanine Aminotransferase ( ALT/SGPT) 12, Alkaline Phosphatase 48, Total Protein 7.1, Albumin 2.9L, Globulin 4.2, Albumin/Globulin Ratio 0.7L Height (Feet): 5 Height (Inches): 0.00 Weight (Pounds): 110 Neck: supple Cardiovascular: normal rate Respiratory/Chest: lungs clear Abdomen: soft Juan R Ellison MD Jun 08, 2017 11:10
--- NOTE | 2017-06-08 11:10 | General Progress Note ---
Assessment/Plan Problem List: (1) Syncope ICD Codes: R55 - Syncope and collapse SNOMED: 092282958 Qualifiers: Qualified Codes: R55 - Syncope and collapse (2) UTI (urinary tract infection) ICD Codes: N39.0 - Urinary tract infection, site not specified SNOMED: 23765844 Qualifiers: Qualified Codes: N30.01 - Acute cystitis with hematuria (3) Fall ICD Codes: W19.XXXA - Unspecified fall, initial encounter SNOMED: 8527243, 978751713 Qualifiers: Qualified Codes: W19.XXXA - Unspecified fall, initial encounter (4) Multiple injuries due to trauma ICD Codes: T07.XXXA - Unspecified multiple injuries, initial encounter SNOMED: 826012391 Status: progressing Assessment/Plan s/p fall r/o arrythmia s/p mutiple ecchymoses told daughter that is not safe to go home and needs snf she agreed to snf dc planning Subjective ROS Limited/Unobtainable: Yes Constitutional: Reports: no symptoms Allergies: Coded Allergies: No Known Allergies (Unverified , 07/19/13) Objective Last 24 Hour Vital Signs Date Time Temp Pulse Resp B/P (MAP) Pulse Ox O2 Delivery O2 Flow Rate FiO2 06/08/17 09:24 94 160/91 06/08/17 08:26 96.5 94 18 160/91 96 Room Air 06/08/17 04:00 78 06/08/17 04:00 99.7 81 18 125/65 95 Room Air 06/08/17 00:00 97.4 77 18 143/74 94 Room Air 06/08/17 00:00 76 06/07/17 20:00 98.8 80 20 137/86 94 Room Air 06/07/17 20:00 86 06/07/17 16:18 98.4 81 19 146/77 Room Air 06/07/17 16:00 82 06/07/17 12:00 78 06/07/17 12:00 97.5 80 19 128/80 Room Air Intake and Output 06/08/17 06/09/17 19:00 07:00 Intake Total 220 ml Balance 220 ml Intake Oral 220 ml Laboratory Tests 06/07/17 14:05: White Blood Count 4.9, Red Blood Count 4.35, Hemoglobin 12.8, Hematocrit 39.3, Mean Corpuscular Volume 90, Mean Corpuscular Hemoglobin 29.4, Mean Corpuscular Hemoglobin Concent 32.5, Red Cell Distribution Width 11.7, Platelet Count 148L, Mean Platelet Volume 8.9, Neutrophils (%) (Auto) 68.8, Lymphocytes (%) (Auto) 17.0L, Monocytes (%) (Auto) 11.2H, Eosinophils (%) (Auto) 2.3, Basophils (%) ( Auto) 0.8, Sodium Level 134L, Potassium Level 4.1, Chloride Level 100, Carbon Dioxide Level 27, Anion Gap 7, Blood Urea Nitrogen 13, Creatinine 0.9, Estimat Glomerular Filtration Rate , Glucose Level 240#H, Calcium Level 8.9, Total Bilirubin 0.4, Aspartate Amino Transf (AST/SGOT) 18, Alanine Aminotransferase ( ALT/SGPT) 12, Alkaline Phosphatase 48, Total Protein 7.1, Albumin 2.9L, Globulin 4.2, Albumin/Globulin Ratio 0.7L Height (Feet): 5 Height (Inches): 0.00 Weight (Pounds): 110 Neck: supple Cardiovascular: normal rate Respiratory/Chest: lungs clear Abdomen: soft Juan R Ellison MD Jun 08, 2017 11:10
--- NOTE | 2017-06-08 11:10 | General Progress Note ---
Assessment/Plan Problem List: (1) Syncope ICD Codes: R55 - Syncope and collapse SNOMED: 449387515 Qualifiers: Qualified Codes: R55 - Syncope and collapse (2) UTI (urinary tract infection) ICD Codes: N39.0 - Urinary tract infection, site not specified SNOMED: 75097866 Qualifiers: Qualified Codes: N30.01 - Acute cystitis with hematuria (3) Fall ICD Codes: W19.XXXA - Unspecified fall, initial encounter SNOMED: 9404537, 468448348 Qualifiers: Qualified Codes: W19.XXXA - Unspecified fall, initial encounter (4) Multiple injuries due to trauma ICD Codes: T07.XXXA - Unspecified multiple injuries, initial encounter SNOMED: 145368759 Status: progressing Assessment/Plan s/p fall r/o arrythmia s/p mutiple ecchymoses told daughter that is not safe to go home and needs snf she agreed to snf dc planning Subjective ROS Limited/Unobtainable: Yes Constitutional: Reports: no symptoms Allergies: Coded Allergies: No Known Allergies (Unverified , 07/19/13) Objective Last 24 Hour Vital Signs Date Time Temp Pulse Resp B/P (MAP) Pulse Ox O2 Delivery O2 Flow Rate FiO2 06/08/17 09:24 94 160/91 06/08/17 08:26 96.5 94 18 160/91 96 Room Air 06/08/17 04:00 78 06/08/17 04:00 99.7 81 18 125/65 95 Room Air 06/08/17 00:00 97.4 77 18 143/74 94 Room Air 06/08/17 00:00 76 06/07/17 20:00 98.8 80 20 137/86 94 Room Air 06/07/17 20:00 86 06/07/17 16:18 98.4 81 19 146/77 Room Air 06/07/17 16:00 82 06/07/17 12:00 78 06/07/17 12:00 97.5 80 19 128/80 Room Air Intake and Output 06/08/17 06/09/17 19:00 07:00 Intake Total 220 ml Balance 220 ml Intake Oral 220 ml Laboratory Tests 06/07/17 14:05: White Blood Count 4.9, Red Blood Count 4.35, Hemoglobin 12.8, Hematocrit 39.3, Mean Corpuscular Volume 90, Mean Corpuscular Hemoglobin 29.4, Mean Corpuscular Hemoglobin Concent 32.5, Red Cell Distribution Width 11.7, Platelet Count 148L, Mean Platelet Volume 8.9, Neutrophils (%) (Auto) 68.8, Lymphocytes (%) (Auto) 17.0L, Monocytes (%) (Auto) 11.2H, Eosinophils (%) (Auto) 2.3, Basophils (%) ( Auto) 0.8, Sodium Level 134L, Potassium Level 4.1, Chloride Level 100, Carbon Dioxide Level 27, Anion Gap 7, Blood Urea Nitrogen 13, Creatinine 0.9, Estimat Glomerular Filtration Rate , Glucose Level 240#H, Calcium Level 8.9, Total Bilirubin 0.4, Aspartate Amino Transf (AST/SGOT) 18, Alanine Aminotransferase ( ALT/SGPT) 12, Alkaline Phosphatase 48, Total Protein 7.1, Albumin 2.9L, Globulin 4.2, Albumin/Globulin Ratio 0.7L Height (Feet): 5 Height (Inches): 0.00 Weight (Pounds): 110 Neck: supple Cardiovascular: normal rate Respiratory/Chest: lungs clear Abdomen: soft Juan R Ellison MD Jun 08, 2017 11:10
[2017-06-08 11:26] VITALS: BP 149/81
[2017-06-08 15:32] VITALS: BP 112/73
--- NOTE | 2017-06-08 16:06 | Infectious Diseases Prog Note ---
Assessment/Plan Problems: (1) UTI (urinary tract infection) Assessment & Plan: with MDR E coli , continue cefepime for 7 days , keep in contact isolation (2) Multiple injuries due to trauma Assessment & Plan: continue tele monitor, and neuro check, neurology is following (3) DM (diabetes mellitus) Assessment & Plan: recommend tight glycemic control to keep blood glucose between 80-120 (4) HTN (hypertension) Assessment & Plan: continue blood pressure meds to keep SBP<140 (5) Fever Assessment & Plan: resolved, suspect facial cellulitis, continue vancomycin and cefepime empirically Subjective Constitutional: Reports: no symptoms HEENT: Reports: other - facial swelling and bruises Respiratory: Reports: no symptoms Breasts: Reports: no symptoms Cardiovascular: Reports: no symptoms Gastrointestinal/Abdominal: Reports: no symptoms Genitourinary: Reports: no symptoms Neurologic: Reports: no symptoms Psychiatric: Reports: no symptoms Skin: Reports: no symptoms Endocrine: Reports: no symptoms Hematologic: Reports: no symptoms Allergies: Coded Allergies: No Known Allergies (Unverified , 07/19/13) Subjective she has right facial swelling , with bruises, can't open her right eye, NAD Objective Vital Signs Last 24 Hour Vital Signs Date Time Temp Pulse Resp B/P (MAP) Pulse Ox O2 Delivery O2 Flow Rate FiO2 06/08/17 15:32 96.8 96 18 112/73 95 Room Air 06/08/17 12:00 90 06/08/17 11:26 97.1 83 18 149/81 96 Room Air 06/08/17 09:24 94 160/91 06/08/17 08:26 96.5 94 18 160/91 96 Room Air 06/08/17 08:00 91 06/08/17 04:00 78 06/08/17 04:00 99.7 81 18 125/65 95 Room Air 06/08/17 00:00 97.4 77 18 143/74 94 Room Air 06/08/17 00:00 76 06/07/17 20:00 98.8 80 20 137/86 94 Room Air 06/07/17 20:00 86 06/07/17 16:18 98.4 81 19 146/77 Room Air Height (Feet): 5 Height (Inches): 0.00 Weight (Pounds): 110 General Appearance: no acute distress, cachetic, other - right facial bruises and swelling HEENT: normocephalic, atraumatic, anicteric, mucous membranes moist Respiratory/Chest: chest wall non-tender, lungs clear, normal breath sounds, no respiratory distress, no accessory muscle use, decreased breath sounds Cardiovascular: normal peripheral pulses, normal rate, regular rhythm, no gallop/murmur, no JVD Abdomen: normal bowel sounds, soft, non tender, no organomegaly, non distended , no mass, no scars Extremities: no cyanosis, no clubbing Skin: no rash, no lesions, no ulcers Neurologic/Psychiatric: alert, oriented x 3 Lymphatic: no neck adenopathy, no groin adenopathy Current Medications Medications (Trade) Dose Ordered Sig/Fercho Route PRN Reason Start Time Stop Time Status Last Admin Dose Admin Acetaminophen (Tylenol) 650 mg Q4H PRN ORAL fever (temp > 100.5 F) 06/05/17 18:00 07/05/17 17:59 06/06/17 18:52 Amlodipine Besylate (Norvasc) 5 mg DAILY ORAL 06/06/17 09:00 07/06/17 08:59 06/08/17 09:24 Bacitracin (Bacitracin) 1 applic DAILY TOPIC 06/06/17 09:00 07/06/17 08:59 06/08/17 09:24 Cefepime HCl 1 gm/ Dextrose 55 ml @ 110 mls/hr DAILY IVPB 06/05/17 18:30 06/12/17 18:29 06/08/17 09:24 Clonidine HCl (Catapres) 0.1 mg Q6H PRN ORAL For High Blood Pressure 06/05/17 18:00 07/05/17 17:59 Dextrose (Dextrose 50%) STAT PRN IV Hypoglycemia 06/05/17 18:00 07/05/17 17:59 Insulin Aspart (NovoLOG) BEFORE MEALS AND HS SUBQ 06/05/17 21:00 07/05/17 20:59 06/08/17 13:51 Vancomycin HCl (Vanco rx to dose) 1 ea DAILYPRN PRN MISC Per rx protocol 06/06/17 16:15 07/06/17 16:14 Vancomycin HCl 500 mg/Sodium Chloride 110 ml @ 110 mls/hr Q24H IVPB 06/06/17 17:00 06/13/17 16:59 06/07/17 16:58 Sherlyn Douglas M.D. Jun 08, 2017 16:06
[2017-06-08] MEDS ORDERED: Vancomycin 1gm/D5W 275ml IVPB SCH ×2 (18:00)
[2017-06-08 20:34] VITALS: BP 150/82
[2017-06-09 00:19] VITALS: BP 135/78
[2017-06-09 04:00] VITALS: BP 135/92
--- NOTE | 2017-06-09 06:15 | Consultation ---
DATE OF CONSULTATION: 06/08/2017 HEMATOLOGY/ONCOLOGY CONSULTATION CONSULTING PHYSICIAN: Fernandez Schrader MD REQUESTING PHYSICIAN: Juan R Ellison M.D. REASON FOR CONSULTATION: Evaluation of thrombocytopenia. IDENTIFICATION DATA: Dear Dr. Ellison, The patient is an 81-year-old female with past medical history significant for hypertension and diabetes mellitus, at this time, presents to [facility] status post fall, she felt dizzy and states that she felt her heart was beating fast with tachycardia right cheek bone, sustained a raul bruise. Urology service was consulted and was noted to have urinary tract infection. Blood pressure initially was elevated. Urinalysis reviewed again. ID service consulted the patient as well. . PAST MEDICAL HISTORY: Diabetes mellitus and hypertension. PAST SURGICAL HISTORY: None noted. MEDICATIONS: Reviewed. ALLERGIES: No known drug allergies. SOCIAL HISTORY: No alcohol, tobacco, or illicit drug use. FAMILY HISTORY: Noncontributory. REVIEW OF SYSTEMS: Difficult to obtain at this time given the patient's mental status. PHYSICAL EXAMINATION: GENERAL: No acute distress. VITAL SIGNS: Reviewed. PULMONARY: Decreased breath sounds. CARDIOVASCULAR: Regular rate. No S3 or S4. ABDOMEN: Soft, nontender, and nondistended. EXTREMITIES: There is 1+ edema. LABORATORY DATA: WBC 6.9, hemoglobin 12.8, hematocrit 39, and platelet count 148,000. BUN of 13 and creatinine 0.9. ASSESSMENT AND RECOMMENDATIONS: 1. Thrombocytopenia, potentially secondary to underlying infection versus medications can contribute to this, however, benefits outweigh the risks. Continue to monitor platelet count. If it drops less than 100, then can consider to change medications. 2. Anemia secondary to chronic disease, very mild. 3. Urinary tract infection. Antibiotics per ID service. 4. Hypertension. Currently, blood pressure better controlled. 5. urinary tract infection. 6. Multiple injuries due to trauma, no bleed noted. Fernandez Schrader M.D. DR: ALYSSIA JOB#: [id number] CC: Shree Schrader MD; Fax#: [phone] JUAN R ELLISON M.D. ; FAX#: [phone]
--- NOTE | 2017-06-09 06:15 | Consultation ---
DATE OF CONSULTATION: 06/08/2017 HEMATOLOGY/ONCOLOGY CONSULTATION CONSULTING PHYSICIAN: Fernandez Schrader MD REQUESTING PHYSICIAN: Juan R Ellison M.D. REASON FOR CONSULTATION: Evaluation of thrombocytopenia. IDENTIFICATION DATA: Dear Dr. Ellison, The patient is an 81-year-old female with past medical history significant for hypertension and diabetes mellitus, at this time, presents to [facility] status post fall, she felt dizzy and states that she felt her heart was beating fast with tachycardia right cheek bone, sustained a raul bruise. Urology service was consulted and was noted to have urinary tract infection. Blood pressure initially was elevated. Urinalysis reviewed again. ID service consulted the patient as well. . PAST MEDICAL HISTORY: Diabetes mellitus and hypertension. PAST SURGICAL HISTORY: None noted. MEDICATIONS: Reviewed. ALLERGIES: No known drug allergies. SOCIAL HISTORY: No alcohol, tobacco, or illicit drug use. FAMILY HISTORY: Noncontributory. REVIEW OF SYSTEMS: Difficult to obtain at this time given the patient's mental status. PHYSICAL EXAMINATION: GENERAL: No acute distress. VITAL SIGNS: Reviewed. PULMONARY: Decreased breath sounds. CARDIOVASCULAR: Regular rate. No S3 or S4. ABDOMEN: Soft, nontender, and nondistended. EXTREMITIES: There is 1+ edema. LABORATORY DATA: WBC 6.9, hemoglobin 12.8, hematocrit 39, and platelet count 148,000. BUN of 13 and creatinine 0.9. ASSESSMENT AND RECOMMENDATIONS: 1. Thrombocytopenia, potentially secondary to underlying infection versus medications can contribute to this, however, benefits outweigh the risks. Continue to monitor platelet count. If it drops less than 100, then can consider to change medications. 2. Anemia secondary to chronic disease, very mild. 3. Urinary tract infection. Antibiotics per ID service. 4. Hypertension. Currently, blood pressure better controlled. 5. urinary tract infection. 6. Multiple injuries due to trauma, no bleed noted. Fernandez Schrader M.D. DR: ALYSSIA JOB#: [id number] CC: Shree Schrader MD; Fax#: [phone] JUAN R ELLISON M.D. ; FAX#: [phone]
--- NOTE | 2017-06-09 06:15 | Consultation ---
DATE OF CONSULTATION: 06/08/2017 HEMATOLOGY/ONCOLOGY CONSULTATION CONSULTING PHYSICIAN: Fernandez Schrader MD REQUESTING PHYSICIAN: Juan R Ellison M.D. REASON FOR CONSULTATION: Evaluation of thrombocytopenia. IDENTIFICATION DATA: Dear Dr. Ellison, The patient is an 81-year-old female with past medical history significant for hypertension and diabetes mellitus, at this time, presents to [facility] status post fall, she felt dizzy and states that she felt her heart was beating fast with tachycardia right cheek bone, sustained a raul bruise. Urology service was consulted and was noted to have urinary tract infection. Blood pressure initially was elevated. Urinalysis reviewed again. ID service consulted the patient as well. . PAST MEDICAL HISTORY: Diabetes mellitus and hypertension. PAST SURGICAL HISTORY: None noted. MEDICATIONS: Reviewed. ALLERGIES: No known drug allergies. SOCIAL HISTORY: No alcohol, tobacco, or illicit drug use. FAMILY HISTORY: Noncontributory. REVIEW OF SYSTEMS: Difficult to obtain at this time given the patient's mental status. PHYSICAL EXAMINATION: GENERAL: No acute distress. VITAL SIGNS: Reviewed. PULMONARY: Decreased breath sounds. CARDIOVASCULAR: Regular rate. No S3 or S4. ABDOMEN: Soft, nontender, and nondistended. EXTREMITIES: There is 1+ edema. LABORATORY DATA: WBC 6.9, hemoglobin 12.8, hematocrit 39, and platelet count 148,000. BUN of 13 and creatinine 0.9. ASSESSMENT AND RECOMMENDATIONS: 1. Thrombocytopenia, potentially secondary to underlying infection versus medications can contribute to this, however, benefits outweigh the risks. Continue to monitor platelet count. If it drops less than 100, then can consider to change medications. 2. Anemia secondary to chronic disease, very mild. 3. Urinary tract infection. Antibiotics per ID service. 4. Hypertension. Currently, blood pressure better controlled. 5. urinary tract infection. 6. Multiple injuries due to trauma, no bleed noted. Fernandez Schrader M.D. DR: ALYSSIA JOB#: [id number] CC: Shree Schrader MD; Fax#: [phone] JUAN R ELLISON M.D. ; FAX#: [phone]
[2017-06-09] MEDS: NovoLOG Insulin Flexpen SUBQ SCH ×2 (06:55→11:53)
[2017-06-09 08:00] VITALS: BP 143/79
[2017-06-09] MEDS: Bacitracin Oint UD TOPIC SCH (08:11)
[2017-06-09] MEDS: Cefepime HCl 1 GM in D5W 55 ML IVPB SCH (09:00)
[2017-06-09 12:00] VITALS: BP 141/80
[2017-06-09] MEDS ORDERED: CEPHALEXIN500 MG ORAL ×2 (12:47→12:48)
[2017-06-09] MEDS ORDERED: Tubing IV Secondary IV ONE (12:59)
--- NOTE | 2017-06-09 13:33 | Infectious Diseases Prog Note ---
Assessment/Plan Problems: (1) UTI (urinary tract infection) Assessment & Plan: with MDR E coli , continue cefepime for 7 days , keep in contact isolation (2) Multiple injuries due to trauma Assessment & Plan: continue tele monitor, and neuro check, neurology is following (3) DM (diabetes mellitus) Assessment & Plan: recommend tight glycemic control to keep blood glucose between 80-120 (4) HTN (hypertension) Assessment & Plan: continue blood pressure meds to keep SBP<140 (5) Fever Assessment & Plan: resolved, suspect facial cellulitis, continue vancomycin and cefepime empirically Subjective Constitutional: Reports: no symptoms HEENT: Reports: other - mild right facial swelling Respiratory: Reports: no symptoms Breasts: Reports: no symptoms Cardiovascular: Reports: no symptoms Gastrointestinal/Abdominal: Reports: no symptoms Genitourinary: Reports: no symptoms Neurologic: Reports: no symptoms Psychiatric: Reports: no symptoms Skin: Reports: no symptoms Endocrine: Reports: no symptoms Hematologic: Reports: no symptoms Allergies: Coded Allergies: No Known Allergies (Unverified , 07/19/13) Subjective she has right facial swelling , with bruises, can't open her right eye, NAD Objective Vital Signs Last 24 Hour Vital Signs Date Time Temp Pulse Resp B/P (MAP) Pulse Ox O2 Delivery O2 Flow Rate FiO2 06/09/17 12:00 98.4 85 15 141/80 95 Room Air 06/09/17 08:11 92 143/79 06/09/17 08:00 98.4 92 20 143/79 95 Room Air 06/09/17 08:00 97 06/09/17 04:00 78 06/09/17 04:00 99.1 54 20 135/92 97 Room Air 06/09/17 00:19 98.0 100 20 135/78 97 Room Air 06/09/17 00:00 87 06/08/17 20:34 98.1 105 20 150/82 95 Room Air 06/08/17 20:00 88 06/08/17 16:00 84 06/08/17 15:32 96.8 96 18 112/73 95 Room Air Height (Feet): 5 Height (Inches): 0.00 Weight (Pounds): 110 General Appearance: WD/WN, no acute distress HEENT: normocephalic, anicteric, mucous membranes moist, other - right facial bruises and swelling Respiratory/Chest: chest wall non-tender, lungs clear, normal breath sounds, no respiratory distress, no accessory muscle use Cardiovascular: normal peripheral pulses, normal rate, regular rhythm, no gallop/murmur, no JVD Abdomen: normal bowel sounds, soft, non tender, no organomegaly, non distended , no mass, no scars Extremities: no cyanosis, no clubbing Skin: no rash, no lesions, no ulcers Laboratory Tests Test 06/08/17 16:00 Vancomycin Level Trough 4.6 ug/mL (5.0-12.0) L Current Medications Medications (Trade) Dose Ordered Sig/Fercho Route PRN Reason Start Time Stop Time Status Last Admin Dose Admin Acetaminophen (Tylenol) 650 mg Q4H PRN ORAL fever (temp > 100.5 F) 06/05/17 18:00 07/05/17 17:59 06/06/17 18:52 Amlodipine Besylate (Norvasc) 5 mg DAILY ORAL 06/06/17 09:00 07/06/17 08:59 06/09/17 08:11 Bacitracin (Bacitracin) 1 applic DAILY TOPIC 06/06/17 09:00 07/06/17 08:59 06/09/17 08:11 Cefepime HCl 1 gm/ Dextrose 55 ml @ 110 mls/hr DAILY IVPB 06/05/17 18:30 06/12/17 18:29 06/08/17 09:24 Clonidine HCl (Catapres) 0.1 mg Q6H PRN ORAL For High Blood Pressure 06/05/17 18:00 07/05/17 17:59 Dextrose (Dextrose 50%) STAT PRN IV Hypoglycemia 06/05/17 18:00 07/05/17 17:59 Insulin Aspart (NovoLOG) BEFORE MEALS AND HS SUBQ 06/05/17 21:00 07/05/17 20:59 06/09/17 11:53 Vancomycin HCl (Vanco rx to dose) 1 ea DAILYPRN PRN MISC Per rx protocol 06/06/17 16:15 07/06/17 16:14 Vancomycin HCl 1 gm/Dextrose 275 ml @ 183.708 mls/hr DAILY@1700 IVPB 06/08/17 18:00 06/13/17 17:59 06/08/17 17:31 Sherlyn Douglas M.D. Jun 09, 2017 13:33
--- NOTE | 2017-06-09 16:01 | General Progress Note ---
Assessment/Plan Assessment/Plan ASSESSMENT AND RECOMMENDATIONS: 1. Thrombocytopenia, potentially secondary to underlying infection versus medications. If it drops less than 100, then can consider to change medications. 2. Anemia secondary to chronic disease, very mild. 3. Urinary tract infection. Antibiotics per ID service. 4. Hypertension. Currently, blood pressure better controlled. Subjective Allergies: Coded Allergies: No Known Allergies (Unverified , 07/19/13) All Systems: reviewed and negative except above Subjective no events overnght Objective Last 24 Hour Vital Signs Date Time Temp Pulse Resp B/P (MAP) Pulse Ox O2 Delivery O2 Flow Rate FiO2 06/09/17 12:00 98.4 85 15 141/80 95 Room Air 06/09/17 08:11 92 143/79 06/09/17 08:00 98.4 92 20 143/79 95 Room Air 06/09/17 08:00 97 06/09/17 04:00 78 06/09/17 04:00 99.1 54 20 135/92 97 Room Air 06/09/17 00:19 98.0 100 20 135/78 97 Room Air 06/09/17 00:00 87 06/08/17 20:34 98.1 105 20 150/82 95 Room Air 06/08/17 20:00 88 06/08/17 16:00 84 Laboratory Tests 06/08/17 16:00: Vancomycin Level Trough 4.6L Height (Feet): 5 Height (Inches): 0.00 Weight (Pounds): 110 General Appearance: no apparent distress EENT: normal ENT inspection, TMs normal Neck: normal inspection Respiratory/Chest: chest wall non-tender Abdomen: normal bowel sounds Extremities: normal range of motion Fernandez Shcrader Jun 09, 2017 16:01
--- NOTE | 2017-06-11 13:01 | Discharge Summary ---
Discharge Summary Hospital Course Date of Admission Jun 05, 2017 at 14:32 Date of Discharge Jun 09, 2017 at 13:00 Admitting Diagnosis syncope HPI Leeroy Cole is a 81 year old female who was admitted on Jun 05, 2017 at 14:32 for Syncope Hospital Course [id number] Discharge Discharge Disposition Patient was discharged to SNF/Subacute Facility(03) Discharge Diagnoses: Argentina Cortez NP Jun 11, 2017 13:01
--- NOTE | 2017-06-11 13:01 | Discharge Summary ---
Discharge Summary Hospital Course Date of Admission Jun 05, 2017 at 14:32 Date of Discharge Jun 09, 2017 at 13:00 Admitting Diagnosis syncope HPI Leeroy Cole is a 81 year old female who was admitted on Jun 05, 2017 at 14:32 for Syncope Hospital Course [id number] Discharge Discharge Disposition Patient was discharged to SNF/Subacute Facility(03) Discharge Diagnoses: Argentina Cortez NP Jun 11, 2017 13:01
--- NOTE | 2017-06-11 13:01 | Discharge Summary ---
Discharge Summary Hospital Course Date of Admission Jun 05, 2017 at 14:32 Date of Discharge Jun 09, 2017 at 13:00 Admitting Diagnosis syncope HPI Leeroy Cole is a 81 year old female who was admitted on Jun 05, 2017 at 14:32 for Syncope Hospital Course [id number] Discharge Discharge Disposition Patient was discharged to SNF/Subacute Facility(03) Discharge Diagnoses: Argentina Cortez NP Jun 11, 2017 13:01
--- NOTE | 2017-06-12 09:02 | Discharge Summary 2 SIG ---
DATE OF ADMISSION: 06/05/2017 DATE OF DISCHARGE: 06/09/2017 BRIEF HOSPITAL COURSE: The patient is an 81-year-old female who presented to ED, status post fall, reported feeling dizzy and felt the heart was beating fast. She fell on her right side on the face, pain was 10/10. The patient had redness over the right cheekbone area and right side of the forehead with some bleeding and swelling. She reported mild upper respiratory infection symptoms several days ago, which resolved, however, continued to have abdominal pain. On evaluation at ED, EKG showed normal sinus rhythm with no acute ST to T-wave changes. Troponin was negative. CBC and CMP unremarkable. Urinalysis was positive for UTI, nitrite positive with many bacteria, and too many to count WBCs. CAT scan of the head done showed no evidence of acute intracranial hemorrhage or intracranial process. A facial bone CT scan was done that was negative. She underwent neurological evaluation. The patient is status post mechanical fall with blunt head trauma and transient dizziness. She was given PT and OT therapy. She had a urine infection and was started empirically on cefepime. She was continued on aspirin and was given physical therapy. She underwent facial bone CT that showed no acute bony trauma with evidence of dental disease. Cervical spine CT, also degenerative joint changes with no acute bony trauma. Urine culture showed growth of ESBL E. coli. She has thrombocytopenia, which is potentially secondary to underlying infection and anemia secondary to chronic disease. She was eventually discharged home. FINAL DIAGNOSES: 1. Urinary tract infection with multidrug-resistant Escherichia coli. 2. Multiple injuries due to trauma. 3. Diabetes mellitus. 4. Hypertension. 5. Anemia secondary to chronic disease. 6. Hypertension. 7. Status post fall. 8. Syncope. DISPOSITION: The patient was discharged to [facility], [facility]. DISCHARGE MEDICATIONS: Refer to medication list. Resume home medications. Juan R Ellison M.D. I have been assigned to dictate discharge summary on this account and I was not involved in the patient's management. Argentina Cortez N.P. DR: [facility] JOB#: [id number] CC:
== END 2017-06-09 13:00 | DRG 690 ==
LOC: EDBD 13:22 → EDBEDREQ 13:48 → EMR 13:50 → 2E 14:32 → EDBEDREQ 15:21 → 2E 06-06 09:41
DX: N39.0 Urinary tract infection, site not specified (principal); D69.6 Thrombocytopenia, unspecified; F03.90 Unspecified dementia, unspecified severity, without behavioral disturbance, psychotic disturbance, mood disturbance, and anxiety; L03.211 Cellulitis of face; E11.9 Type 2 diabetes mellitus without complications; I10 Essential (primary) hypertension; B96.20 Unspecified Escherichia coli [E. coli] as the cause of diseases classified elsewhere; S00.03XA Contusion of scalp, initial encounter; W19.XXXA Unspecified fall, initial encounter; D63.8 Anemia in other chronic diseases classified elsewhere; Z79.4 Long term (current) use of insulin; R42 Dizziness and giddiness; S00.83XA Contusion of other part of head, initial encounter; Z16.24 Resistance to multiple antibiotics
CPT/HCPCS: 36415; 70450; 70486; 71010; 72125; 80053; 80202; 81003; 82550; 82553; 82962; 84484; 85025; 87086; 87181; 93005; 99285; J1815; J8499